=== PATIENT | female | born 1985 | race Caucasian/White ===

== ENCOUNTER 2019-02-05 07:24 | Emergency (ER) | payer OTHER, SELFPAY ==
[2019-02-05 07:26] VITALS: BP 119/71; PULSE 77; RESP 16; TEMP 36.3; O2SAT 96; BMI 29.5
[2019-02-05 07:29] VITALS: BP 119/71; PULSE 77; RESP 16; TEMP 36.3; O2SAT 96
--- NOTE | 2019-02-05 07:51 | ED.DCSUM_ITS ---
- ER Visit Summary Date of Service: 02/05/19 Chief Complaint: Bilateral ear aches and sore throat History of Present Illness: The patient is a 33 F significant past medical history. Prior ear tubes as a child. Patient states for 5 to 6 days she has had sore throat bilateral ear aches. She is able to swallow. Denies fever or chills. No significant cough. Physical Examination: Young female no acute distress. Vital signs are stable and afebrile. HEENT exam shows bilateral tonsillar erythema. Minimal swelling. They are not touching. There is no compromised airway. No stridor or drooling. No exudate. No peritonsillar abscess. Both TMs are erythematous and dull. No perforation. Neck is nontender without lymphadenopathy. Trachea midline nontender. Lungs clear to auscultation bilaterally. Heart regular rhythm no murmur. Abdomen is soft and nontender. Extremities moves all 4. No axillary lymphadenopathy. Neurologically she is awake alert with no focal motor deficits. Skin no rashes. Back nontender. Test Results: None Emergency Department Course and Treatment: Clinically I do not think this is strep throat she has no exudate this time and no lymphadenopathies but she does have bilateral erythematous TMs and I do think she needs antibiotics. This is been going on 5 to 6 days and is progressively getting worse. Treatment Plan: Amoxicillin 500mg 3 times daily for 10 days. First dose given the ER. Plenty of fluids and rest. Warm salt water gargling. Follow-up if not improving return if worse. Disposition: dc Impression: Bilateral Otitis media. This note was generated with [employer] dictation software. It may contain incorrect words, spelling, and punctuation that were not noted in review of the chart prior to signing
--- NOTE | 2019-02-05 07:55 | DCINST.ED_ITS ---
ED Disposition - Plan for ED Patient: Disposition: Home or Assisted Living Instructions: OTITIS MEDIA, Abx Tx (Adult) Prescriptions: Amoxicillin 500 mg PO Q8 #30 tab Prescription Printed Referrals: Andrea Hu MD [STAFF PHYSICIAN] - 1 Week if not improving Additional Instructions: Amoxicillin 1 pill 3 times a day till gone. Tylenol and Motrin for pain. Warm salt water gargling. Or septic spray. Plenty of fluids and rest. Follow- up if not improving return if worse.
[2019-02-05] MEDS: AMOXICILLIN 500 MG CAPSULE PO (07:58)
[2019-02-05 08:03] VITALS: BP 124/77; PULSE 62; RESP 15; O2SAT 98
== END 2019-02-05 08:03 | disposition home or self-care (01) ==
PROVIDERS: Emergency Provider Emergency Medicine
DX: H66.93 Otitis media, unspecified, bilateral (principal); Z72.0 Tobacco use
CPT/HCPCS: 99283